=== PATIENT | female | born 1960 | race Caucasian/White ===

== ENCOUNTER → 2016-08-22 15:55 | Outpatient (CLI) | payer BC | END | disposition home or self-care (01) | LOC: D.MAMMO 08:30 | DX: Z12.31 Encounter for screening mammogram for malignant neoplasm of breast (principal) ==

== ENCOUNTER → 2017-08-07 08:44 | Outpatient (CLI) | payer MEDICAID | END | disposition home or self-care (01) | LOC: D.US 07-31 08:00 | DX: K59.00 Constipation, unspecified (principal); R14.3 Flatulence; R14.0 Abdominal distension (gaseous); R13.10 Dysphagia, unspecified; R19.4 Change in bowel habit ==

== ENCOUNTER → 2018-08-11 19:58 | Outpatient (CLI) | payer MEDICAID | END | disposition home or self-care (01) | LOC: D.MAMMO 11:45 | DX: Z12.31 Encounter for screening mammogram for malignant neoplasm of breast (principal) ==